=== PATIENT | female | born 1995 | race Caucasian/White ===

== ENCOUNTER 2019-04-25 10:18 | Emergency (ER) | payer OTHER ==
[~2019-04-25 10:18] MED LIST: MELATONIN10 M1 PO
[2019-04-25 10:22] VITALS: BMI 32.7
[2019-04-25 10:36] LABS: APPEARANCE CLEAR (CLEAR); BILIRUBIN NEGATIVE (NEGATIVE); COLOR YELLOW (YELLOW); GLUCOSE NEGATIVE (NEGATIVE); KETONE NEGATIVE (NEGATIVE); NITRITE NEGATIVE (NEGATIVE); PROTEIN NEGATIVE (NEGATIVE); SPECIFIC GRAVITY 1.015 (1.005-1.020); UROBILINOGEN NORMAL (NORMAL)
[2019-04-25 10:39] LABS: HCG URINE NEGATIVE (NEGATIVE)
[2019-04-25 10:46] LABS: BASOPHILS 0 % (0-2); EOSINOPHILS 0.1 % (0-7); HEMATOCRIT 39.9 % (36.0-48.0); HEMOGLOBIN 13.5 g/dL (12-16); IMMATURE GRANULOCYTES 0.2 % (0-5); LYMPHOCYTES 12.6 % (15-50); MCH 28.2 pg (26.0-34.0); MCHC 33.8 g/dL (31.0-37.0); MCV 83.3 fL (80.0-100.0); MONOCYTES 5.4 % (2-11); NEUTROPHILS 81.7 % (40-80); PLATELET COUNT 249 10x3/uL (130-400); RBC 4.79 10x6/uL (4.00-5.40); RDW 12.7 % (11.5-14.5); WBC 14.2 10x3/uL (4.8-10.8)
[2019-04-25 11:05] LABS: ALBUMIN 4.1 g/dL (3.4-5.0); ALKALINE PHOSPHATASE 71 U/L (46-116); ALT (SGPT) 34 U/L (10-68); BILIRUBIN - TOTAL 0.39 mg/dL (0.2-1.3); CALC OSMOLALITY 276 mosm/kg (275-300); CALCIUM 8.8 mg/dL (8.5-10.1); CARBON DIOXIDE 25.5 mmol/L (21.0-32.0); CHLORIDE - SERUM 103 mmol/L (98-107); CREATININE - SERUM 0.6 mg/dL (0.6-1.3); GLUCOSE 99 mg/dL (74-106); POTASSIUM - SERUM 3.9 mmol/L (3.5-5.1); PROTEIN - SERUM 7.3 g/dL (6.4-8.2); SODIUM 138 mmol/L (136-145); UREA NITROGEN 15 mg/dL (7-18); eGFR NON AFRICAN AMERICAN > 90 mL/min (90-120)
[2019-04-25 11:08] LABS: AMYLASE - SERUM 43 U/L (25-115); LIPASE 109 U/L (73-393)
[2019-04-25 11:09] LABS: TROPONIN-I < 0.017 ng/mL (0.000-0.060)
[2019-04-25] MEDS ORDERED: TYLENOL W/CODEI1 TAB PO (15:07)
[2019-04-25] MEDS ORDERED: VOLTAREN75 MG PO (15:07)
[2019-04-25 15:15] VITALS: BP 142/68
== END 2019-04-25 15:16 | disposition home or self-care (01) ==
LOC: D.ER 10:18
PROVIDERS: Family Medicine
DX: N83.202 Unspecified ovarian cyst, left side (principal); R10.2 Pelvic and perineal pain